=== PATIENT | male | born 1945 | race Caucasian/White ===

== ENCOUNTER 2024-05-16 14:54 | Inpatient (IN) | payer BC, MEDICARE ==
[~2024-05-16] VITALS: Ht 172.7 cm; Wt 66.2 kg
[2024-05-16 08:10] VITALS: BP 114/67; TEMP 98.2; O2SAT 96
[2024-05-16] MEDS ORDERED: IOHEXOL-350 100 ML VIAL IV ONE (15:03)
[2024-05-16] MEDS ORDERED: CT SWABBABLE VALVE TRANS SET 1 EA INFUS.SET MC ONE (15:03)
[2024-05-16] MEDS ORDERED: IV NS 0.9% 250 ML IV ONE (15:03)
[2024-05-16 15:13] LABS: BASOPHILS # (AUTO) 0.1 K/uL (0.0-0.2); BASOPHILS % (AUTO) 1.3 % (0.0-2.0); EOSINOPHILS # (AUTO) 0.4 K/uL (0.0-0.7); EOSINOPHILS % (AUTO) 3.4 % (0.0-6.0); HEMATOCRIT 44 % (39-51); HEMOGLOBIN 14.3 g/dL (13.5-17.5); LYMPHOCYTES # (AUTO) 4.5 K/uL (0.8-4.8); LYMPHOCYTES % (AUTO) 40.4 % (20.0-44.0); MEAN CORPUSCULAR HEMOGLOBIN 27 PG (26.0-33.0); MEAN CORPUSCULAR HGB CONC 33 g/dl (31.0-36.0); MEAN CORPUSCULAR VOLUME 83 fL (80-96); MONOCYTES % (AUTO) 9.4 % (2.0-12.0); NEUTROPHILS # (AUTO) 5.1 K/uL (1.8-8.9); NEUTROPHILS % (AUTO) 45.5 % (43.0-81.0); PLATELET COUNT (AUTO) 332 K/uL (150-450); RED BLOOD CELL COUNT(AUTO) 5.24 MIL/uL (4.5-6.0); RED CELL DISTRIBUTION WIDTH 13.1 % (11.5-15.0); WHITE BLOOD COUNT (AUTO) 11.1 K/uL (4.3-11.0)
[2024-05-16 15:21] LABS: CALCIUM, SERUM 8.4 mg/dL (8.5-10.1); CARBON DIOXIDE 27 mmol/L (21-32); CHLORIDE 101 mmol/L (98-107); CREATININE 1.3 mg/dL (0.6-1.3); GLUCOSE 145 mg/dL (74-106); SODIUM SERUM 138 mmol/L (136-145); UREA NITROGEN, BLOOD 16 mg/dL (7-18)
[2024-05-16 15:27] LABS: ALANINE AMINOTRANSFERASE 15 U/L (12-78); ALBUMIN 3.6 g/dL (3.4-5.0); ALKALINE PHOSPHATASE 112 U/L (46-116); ASPARTATE AMINOTRANSFERASE 9 U/L (15-37); BILIRUBIN,DIRECT 0.1 mg/dL (0.0-0.2); BILIRUBIN,TOTAL 0.4 mg/dL (0.2-1.0); INR 1.06 (0.91-1.10); PARTIAL THROMBOPLASTIN TIME 22.6 SEC (24.3-34.3); PROTHROMBIN TIME 11.2 SECS (9.2-11.1); TOTAL PROTEIN, SERUM 7.3 g/dL (6.4-8.2)
[2024-05-16] MEDS ORDERED: ESCI10TA PO (16:06)
[2024-05-16] MEDS ORDERED: EZET10TA32 PO (16:06)
[2024-05-16] MEDS ORDERED: ASPI-992 PO (16:06)
[2024-05-16] MEDS ORDERED: ASPIRIN 81 MG TAB.CHEW ONE (17:04)
[2024-05-16] MEDS: ASPIRIN 81 MG TAB.CHEW PO ONE (17:04)
[2024-05-16 20:34] VITALS: BP 113/98; TEMP 98.2; O2SAT 97
[2024-05-16] MEDS ORDERED: MAGNESIUM HYDROXIDE 30 ML UDC PO PRN (22:00)
[2024-05-16] MEDS ORDERED: ONDANSETRON HCL/PF 4 MG/2 ML VIAL IVP PRN (22:00)
[2024-05-17] VITALS: BP 134/68; TEMP 98.1; O2SAT 94
[2024-05-17] MEDS: ACETAMINOPHEN 325 MG TABLET PO PRN (00:30)
[2024-05-17 04:31] VITALS: BP 108/49; TEMP 98.1; O2SAT 98
[2024-05-17 06:51] LABS: BASOPHILS # (AUTO) 0.1 K/uL (0.0-0.2); EOSINOPHILS # (AUTO) 0.2 K/uL (0.0-0.7); EOSINOPHILS % (AUTO) 3.3 % (0.0-6.0); HEMATOCRIT 42 % (39-51); HEMOGLOBIN 13.9 g/dL (13.5-17.5); LYMPHOCYTES # (AUTO) 1.9 K/uL (0.8-4.8); LYMPHOCYTES % (AUTO) 29.8 % (20.0-44.0); MEAN CORPUSCULAR HEMOGLOBIN 28 PG (26.0-33.0); MEAN CORPUSCULAR HGB CONC 33 g/dl (31.0-36.0); MEAN CORPUSCULAR VOLUME 83 fL (80-96); MONOCYTES # (AUTO) 0.7 K/uL (0.1-1.30); MONOCYTES % (AUTO) 10.5 % (2.0-12.0); NEUTROPHILS # (AUTO) 3.6 K/uL (1.8-8.9); NEUTROPHILS % (AUTO) 55.4 % (43.0-81.0); PLATELET COUNT (AUTO) 248 K/uL (150-450); RED BLOOD CELL COUNT(AUTO) 5.04 MIL/uL (4.5-6.0); WHITE BLOOD COUNT (AUTO) 6.5 K/uL (4.3-11.0)
[2024-05-17 07:09] LABS: CARBON DIOXIDE 30 mmol/L (21-32); CHLORIDE 106 mmol/L (98-107); CREATININE 1.2 mg/dL (0.6-1.3); GLUCOSE 95 mg/dL (74-106); MAGNESIUM 2.4 mg/dL (1.8-2.4); PHOSPHORUS 2.4 mg/dL (2.5-4.9); POTASSIUM 4.8 mmol/L (3.5-5.1); SODIUM SERUM 142 mmol/L (136-145); UREA NITROGEN, BLOOD 14 mg/dL (7-18)
[2024-05-17 08:00] VITALS: BP 124/73; TEMP 98.2; O2SAT 96
[2024-05-17 08:55] LABS: CHOLESTEROL 160 mg/dL (<200); HDL CHOLESTEROL 56 mg/dL (40-60); LDL 83 mg/dL (0-99); TRIGLYCERIDES 59 mg/dL (30-150)
[2024-05-17 12:00] VITALS: BP 142/75; TEMP 98.6; O2SAT 96
[2024-05-17] MEDS: LACOSAMIDE 50 MG TABLET PO ONE (15:36)
[2024-05-17 16:00] VITALS: BP 152/76; TEMP 98.3; O2SAT 98
[2024-05-17 16:49] LABS: THYROID STIMULATING HORMONE 1.54 uIU/mL (0.358-3.74)
[2024-05-17] MEDS: K PHOS NEUTRAL 250 MG TABLET PO ONE (17:32)
[2024-05-17 20:00] VITALS: BP 146/75; TEMP 97.7; O2SAT 95
[2024-05-18] VITALS: BP 135/68; TEMP 97.7; O2SAT 98
[2024-05-18 05:00] VITALS: BP 109/61; TEMP 97.9; O2SAT 94
[2024-05-18 08:00] VITALS: BP 138/81; TEMP 98.1; O2SAT 96
[2024-05-18] MEDS: LACOSAMIDE 50 MG TABLET PO SCH (08:36)
[2024-05-18 09:09] LABS: FOLIC ACID 17.9 ng/mL (>3.0)
[2024-05-18] MEDS ORDERED: LACO50TA2 PO (12:18)
== END 2024-05-18 13:15 | disposition home or self-care (01) | DRG 553 ==
LOC: ER 15:00 → TELE 17:17
PROVIDERS: ADMIT Nurse Practitioner Acute Care; ATTEND Nurse Practitioner Acute Care
DX: M88.88 Osteitis deformans of other bones (principal); G93.41 Metabolic encephalopathy; R47.01 Aphasia; E87.6 Hypokalemia; J45.909 Unspecified asthma, uncomplicated; Z86.73 Personal history of transient ischemic attack (TIA), and cerebral infarction without residual deficits; R56.9 Unspecified convulsions; F41.9 Anxiety disorder, unspecified; Z79.82 Long term (current) use of aspirin; Z86.16 Personal history of COVID-19; Z79.899 Other long term (current) drug therapy; D72.829 Elevated white blood cell count, unspecified; Z86.69 Personal history of other diseases of the nervous system and sense organs
CPT/HCPCS: 36415; 70450-TC; 70496-TC; 70498-TC; 70551-TC; 71045-TC; 80048-TC; 80061-TC; 80076-TC; 82607-TC; 82962-TC; 83735-TC; 83921; 84100-TC; 84443-TC; 84484-TC; 85025-TC; 85730-TC; 93307-TC; G0378; G0480; J7050; Q9967